=== PATIENT | male | born 1965 | race Caucasian/White ===

== ENCOUNTER 2018-12-15 15:02 | Emergency (ER) | payer OTHER ==
[2018-12-15] MEDS ORDERED: NA CHLORIDE 0.9% 500 ML ONE (15:41)
[2018-12-15] MEDS ORDERED: cloNIDine HCl 0.1 MG TAB ONE (15:41)
[2018-12-15 15:44] LABS: Absolute Lymphocytes (CBC) 1.5 K/uL (0.7-4.9); Absolute Monocytes 0.5 K/uL (0.1-1.3); Absolute Neutrophil 6.3 K/uL (1.8-8.0); Basophils % 0.6 % (0-1.3); Eosinophils % 0.6 % (0-4.4); Hematocrit 51.9 % (39.6-49.0); Lymphocytes % 17.6 % (15.3-44.8); MPV 7.6 fL (7.6-11.3); Monocytes % 6.4 % (3.3-12.3); RBC Red Blood Cell Count 5.37 M/uL (4.33-5.43)
[2018-12-15 16:12] LABS: Potassium 3.5 mmol/L (3.5-5.1); Thyroid Stimulating Hormone 2.29 uIU/mL (0.360-3.740); Troponin (Emerg Dept Use Only) 0.03 ng/mL (0.0-0.045)
[2018-12-15] MEDS ORDERED: LISINOPRIL 20 MG TAB ONE (16:53)
--- NOTE | 2018-12-15 17:00 | EKG ---
Test Date: 2018-11-14 Test Time: 15:36:40 Hourly Team Members: MABEL MEASUREMENT RESULTS: Intervals: Rate: 116 OR: 182 QRSD: 98 QT: 336 QTc: 467 Creola: P: 74 OR: 182 QRS: 44 T: 60 INTERPRETIVE STATEMENTS: Sinus tachycardia Cannot rule out Anterior infarct, age undetermined Abnormal ECG No previous ECG available for comparison Electronically Signed On 12-15-18 16:59:32 CAN CUTTER by Slava Lyons
--- NOTE | 2018-12-15 17:34 | ER ---
Nurse's Notes [facility] Name: Logan Maldonado Age: 53 yrs Sex: Male : 1965 Arrival Date: 12/15/2018 Time: 15:08 Bed 19 Private MD: out of town, doctor Diagnosis: Hypertension Presentation: 12/15 15:16 Presenting complaint: Patient states: Was seen by primary doctor for SMITHA, instructed to sg come to the ED for evaluation due to elevated HR and high blood pressure, pt denies N/V/D, reports HR has been elevated for several days according to his wrist watch. Transition of care: patient was not received from another setting of care. Onset of symptoms was December 15, 2018. Risk Assessment: Do you want to hurt yourself or someone else? Patient reports no desire to harm self or others. Initial Sepsis Screen: Does the patient meet any 2 criteria? No. Patient's initial sepsis screen is negative. Care prior to arrival: None. 15:16 Method Of Arrival: Ambulatory sg 15:16 Acuity: PAULO 3 sg 15:22 Initial Sepsis Screen: Does the patient have a suspected source of infection?. tw2 Historical: - Allergies: 15:17 No Known Allergies; sg - PMHx: 16:23 Hypertension; tw2 - Immunization history:: Adult Immunizations. - Social history:: Smoking status: . - Ebola Screening: : Patient denies travel to an Ebola-affected area in the 21 days before illness onset. - Family history:: not pertinent. - Hospitalizations: : No recent hospitalization is reported. Screenin:21 Abuse screen: Denies threats or abuse. Nutritional screening: No deficits noted. tw2 Tuberculosis screening: No symptoms or risk factors identified. Fall Risk None identified. Assessment: 15:20 Reassessment: Dr. Rincon at bedside at this time. tw2 15:20 General: Appears in no apparent distress. obese, Behavior is calm, cooperative, tw2 appropriate for age. Pain: Denies pain. Neuro: Level of Consciousness is awake, alert, obeys commands, Oriented to person, place, time, situation. Cardiovascular: Heart tones S1 S2 Patient's skin is warm and dry. Cardiovascular: Denies chest pain, shortness of breath, Respiratory: Airway is patent Respiratory effort is even, unlabored, Respiratory pattern is regular, symmetrical, Breath sounds are clear bilaterally. GI: Abdomen is round non-distended, obese, Bowel sounds present X 4 quads. : No signs and/or symptoms were reported regarding the genitourinary system. EENT: No signs and/or symptoms were reported regarding the EENT system. Derm: No signs and/or symptoms reported regarding the dermatologic system. Musculoskeletal: Range of motion:. 16:10 Reassessment: Patient appears in no apparent distress at this time. No changes from tw2 previously documented assessment. Patient and/or family updated on plan of care and expected duration. Pain level reassessed. Patient is alert, oriented x 3, equal unlabored respirations, skin warm/dry/pink. 16:37 Reassessment: provider at bedside at this time. tw2 16:51 Reassessment: Patient appears in no apparent distress at this time. No changes from tw2 previously documented assessment. Patient and/or family updated on plan of care and expected duration. Pain level reassessed. Patient is alert, oriented x 3, equal unlabored respirations, skin warm/dry/pink. 17:29 Reassessment: Patient appears in no apparent distress at this time. No changes from tw2 previously documented assessment. Patient and/or family updated on plan of care and expected duration. Pain level reassessed. Patient is alert, oriented x 3, equal unlabored respirations, skin warm/dry/pink. 17:41 Reassessment: Patient appears in no apparent distress at this time. No changes from tw2 previously documented assessment. Patient and/or family updated on plan of care and expected duration. Pain level reassessed. Patient is alert, oriented x 3, equal unlabored respirations, skin warm/dry/pink. Vital Signs: 15:18 BP 233 / 162; Pulse 132 MON; Resp 18; Temp 98.7; Pulse Ox 96% on R/A; Weight 124.74 kg; sg Height 6 ft. 0 in. (182.88 cm); Pain 0/10; 15:46 BP 216 / 125; Pulse 106; Resp 15; Pulse Ox 96% on R/A; tw2 16:09 BP 191 / 123; Pulse 105; Resp 16; Pulse Ox 96% on R/A; tw2 16:50 BP 190 / 123; Pulse 101; Resp 17; Pulse Ox 99% on R/A; tw2 17:29 BP 185 / 116; Pulse 95; Resp 14; Pulse Ox 95% on R/A; tw2 15:18 Body Mass Index 37.30 (124.74 kg, 182.88 cm) ED Course: 15:08 Patient arrived in ED. sb2 15:08 out of town, doctor is Private Physician. sb2 15:16 Arm band placed on. sg 15:17 Triage completed. sg 15:18 Paty Hill RN is Primary Nurse. tw2 15:19 Peter Rincon MD is Attending Physician. rn 15:20 Inserted saline lock: 20 gauge in right forearm, using aseptic technique. ,using tw2 aseptic technique. per Debby Acevedo Blood collected. 15:21 Placed in gown. Bed in low position. motorcycle assembler on. Pulse ox on. NIBP on. tw2 15:53 EKG done, by chief technician x ray. reviewed by Peter Rincon MD. sm3 17:40 No provider procedures requiring assistance completed. IV discontinued, intact, tw2 bleeding controlled, No redness/swelling at site. Pressure dressing applied. Administered Medications: 15:34 Drug: cloNIDine 0.2 mg Route: PO; tw2 16:40 Follow up: Response: No adverse reaction; Blood pressure is lowered tw2 15:35 Drug: NS 0.9% 500 ml Route: IV; Rate: bolus; Site: right forearm; tw2 16:10 Follow up: IV Status: Completed infusion; IV Intake: 500ml tw2 16:44 Drug: Lisinopril 20 mg Route: PO; tw2 17:40 Follow up: Response: No adverse reaction tw2 Intake: 16:10 IV: 500ml; Total: 500ml. tw2 Outcome: 17:34 Discharge ordered by . rn 17:41 Discharged to home ambulatory. tw2 17:41 Condition: stable 17:41 Discharge instructions given to patient, Instructed on discharge instructions, follow up and referral plans. medication usage, Demonstrated understanding of instructions, follow-up care, medications, Prescriptions given X 1. 17:45 Patient left the ED. tw2 Signatures: Swapnil Chaidez, RN ASHLYN Peter Rincon MD MD rn Wise, Tara, RN RN tw2 Scarlett Downs 2 Lorena Santana 3
--- NOTE | 2018-12-15 17:35 | EDPHYS ---
Physician Documentation [facility] Name: Logan Maldonado Age: 53 yrs Sex: Male : 1965 Arrival Date: 12/15/2018 Time: 15:08 Bed 19 Private MD: out of town, doctor ED Physician Peter Rincon HPI: 12/15 15:33 This 53 yrs old Male presents to ER via Ambulatory with complaints of High rn Blood Pressure. 15:33 The patient has elevated blood pressure and discovered this during work physical. rn Onset: The symptoms/episode began/occurred today. Severity of symptoms: At its worst the blood pressure was severe, in the emergency department the blood pressure is unchanged. It is unknown whether or not the patient has had similar symptoms in the past. Reports hx of hypertension, stopped taking medication years ago, reports doesn't monitor his blood pressure, went to dentist for cleaning and noted high blood pressure, no headache/focal neuro complaint/chest pain/abd pain. Reports feels fine. . Historical: - Allergies: 15:17 No Known Allergies; sg - PMHx: 16:23 Hypertension; tw2 - Immunization history:: Adult Immunizations. - Social history:: Smoking status: . - Ebola Screening: : Patient denies travel to an Ebola-affected area in the 21 days before illness onset. - Family history:: not pertinent. - Hospitalizations: : No recent hospitalization is reported. ROS: 15:33 Constitutional: Negative for fever, chills, and weight loss, Eyes: Negative for injury, rn pain, redness, and discharge, Neck: Negative for injury, pain, and swelling, Cardiovascular: Negative for chest pain, palpitations, and edema, Respiratory: Negative for shortness of breath, cough, wheezing, and pleuritic chest pain, Abdomen/GI: Negative for abdominal pain, nausea, vomiting, diarrhea, and constipation, MS/Extremity: Negative for injury and deformity, Skin: Negative for injury, rash, and discoloration, Neuro: Negative for headache, weakness, numbness, tingling, and seizure. Exam: 15:33 Constitutional: This is a well developed, well nourished patient who is awake, alert, rn and in no acute distress. Head/Face: Normocephalic, atraumatic. Eyes: Pupils equal round and reactive to light, extra-ocular motions intact. Lids and lashes normal. Conjunctiva and sclera are non-icteric and not injected. Cornea within normal limits. Periorbital areas with no swelling, redness, or edema. Cardiovascular: Tachycardic, regular, no murmur Respiratory: Lungs have equal breath sounds bilaterally, clear to auscultation. No increased work of breathing, no retractions or nasal flaring. Abdomen/GI: soft, non-tender Skin: Warm, dry with normal turgor. Normal color with no rashes, no lesions, and no evidence of cellulitis. MS/ Extremity: Pulses equal, no cyanosis. Neurovascular intact. Full, normal range of motion. Equal circumference. Neuro: Awake and alert, GCS 15, oriented to person, place, time, and situation. Cranial nerves II-XII grossly intact. Motor strength 5/5 in all extremities. Sensory grossly intact. Cerebellar exam normal. Normal gait. Vital Signs: 15:18 BP 233 / 162; Pulse 132 MON; Resp 18; Temp 98.7; Pulse Ox 96% on R/A; Weight 124.74 kg; sg Height 6 ft. 0 in. (182.88 cm); Pain 0/10; 15:46 BP 216 / 125; Pulse 106; Resp 15; Pulse Ox 96% on R/A; tw2 16:09 BP 191 / 123; Pulse 105; Resp 16; Pulse Ox 96% on R/A; tw2 16:50 BP 190 / 123; Pulse 101; Resp 17; Pulse Ox 99% on R/A; tw2 17:29 BP 185 / 116; Pulse 95; Resp 14; Pulse Ox 95% on R/A; tw2 15:18 Body Mass Index 37.30 (124.74 kg, 182.88 cm) MDM: 15:19 Patient medically screened. rn 17:31 Differential diagnosis: hypertensive crisis, Malignant HTN. Data reviewed: vital signs, rn nurses notes, lab test result(s), EKG, and as a result, I will discharge patient. Counseling: I had a detailed discussion with the patient and/or guardian regarding: the historical points, exam findings, and any diagnostic results supporting the discharge/admit diagnosis, lab results, radiology results, the need for outpatient follow up, to return to the emergency department if symptoms worsen or persist or if there are any questions or concerns that arise at home. Special discussion: I discussed with the patient/guardian in detail that at this point there is no indication for admission to the hospital. It is understood, however, that if the symptoms persist or worsen the patient needs to return immediately for re-evaluation. Based on the history and exam findings, there is no indication for further emergent testing or inpatient evaluation. I discussed with the patient/guardian the need to see the binder cutter for further evaluation of the symptoms. I discussed with the patient/guardian the need to see the primary care provider for further evaluation of the symptoms. 17:31 ED course: Pt with improvement of HR now to 95 from 132, BP improved, do not want to rn lower much more due to watershed infarct possibility, explained this to patient, especially since grossly asymptomatic. Will start back on an Germain inhibitor given used to be on one, and recommended pcp f/u with BP journal. . 12/15 15:27 Order name: CBC with Diff; Complete Time: 16:14 rn 12/15 15:27 Order name: Basic Metabolic Panel; Complete Time: 16:14 rn 12/15 15:27 Order name: Troponin (emerg Dept Use Only); Complete Time: 16:14 rn 12/15 15:28 Order name: TSH; Complete Time: 16:14 rn 12/15 15:28 Order name: T4 Free; Complete Time: 16:14 rn 12/15 15:27 Order name: IV Start; Complete Time: 15:28 rn 12/15 15:27 Order name: EKG; Complete Time: 15:29 rn 12/15 15:27 Order name: EKG - Nurse/Tech; Complete Time: 15:40 rn Administered Medications: 15:34 Drug: cloNIDine 0.2 mg Route: PO; tw2 16:40 Follow up: Response: No adverse reaction; Blood pressure is lowered tw2 15:35 Drug: NS 0.9% 500 ml Route: IV; Rate: bolus; Site: right forearm; tw2 16:10 Follow up: IV Status: Completed infusion; IV Intake: 500ml tw2 16:44 Drug: Lisinopril 20 mg Route: PO; tw2 17:40 Follow up: Response: No adverse reaction tw2 Disposition: 12/15/18 17:34 Discharged to Home. Impression: Hypertension. - Condition is Stable. - Discharge Instructions: Hypertension, Managing Your Hypertension. - Prescriptions for Lisinopril 20 mg Oral Tablet - take 1 tablet by ORAL route once daily; 30 tablet. - Medication Reconciliation Form, Thank You Letter, Antibiotic Education, Prescription Opioid Use, Work release form form. - Follow up: Private Physician; When: As needed; Reason: Recheck today's complaints, Re-evaluation by your physician. - Problem is an ongoing problem. - Symptoms have improved. Signatures: Dispatcher [employer] EDMS Swapnil Chaidez RN RN Peter Rincon MD MD rn Wise, Tara, RN RN tw2 Corrections: (The following items were deleted from the chart) 17:45 17:34 12/15/2018 17:34 Discharged to Home. Impression: Hypertension. Condition is tw2 Stable. Forms are Medication Reconciliation Form, Thank You Letter, Antibiotic Education, Prescription Opioid Use. Follow up: Private Physician; When: As needed; Reason: Recheck today's complaints, Re-evaluation by your physician. Problem is an ongoing problem. Symptoms have improved. rn
== END 2018-12-15 17:45 | disposition home or self-care (01) ==
LOC: ER 15:02
DX: I10 Essential (primary) hypertension (principal); R00.0 Tachycardia, unspecified; R94.31 Abnormal electrocardiogram [ECG] [EKG]
CPT/HCPCS: 36415; 80048; 84439; 84443; 84484; 85025; 93005; 96360; 99284